=== PATIENT | female | born 1965 | race Caucasian/White ===

== ENCOUNTER 2024-08-17 14:27 | Outpatient (CLI) | payer OTHER ==
--- NOTE | 2024-08-17 19:13 | RADIOLOGY REPORT ---
Procedure: MR MRI LOWER EXTREMITY LEFT 08/17/2024 02:49 PM Indication: EFFUSION, LEFT ANKLE COMPARISON: None TECHNIQUE: Multisequence multiplanar imaging was performed. FINDINGS: Extensor tendons: Unremarkable. Flexor tendons: Severe tendinosis of the distal posterior tibialis tendon longitudinal split tear mil d fluid distention of the tendon sheath. Moderate surrounding edema noted. Diffuse edema in os navic ular. Peroneal tendons: Unremarkable. Syndesmotic ligaments: Unremarkable. Medial stabilizer ligaments: Unremarkable. Lateral stabilizer complex: Unremarkable. Sinus Tarsi: Unremarkable. Tarsal tunnel: Unremarkable. Achilles tendon: Unremarkable. Plantar fascia: Unremarkable. Bones/Joints: Suggestion of pes planus and hindfoot valgus. Mild talonavicular joint osteoarthritis l ateral marginal osteophytosis and subchondral cyst formation. No significant joint effusion Other: Unremarkable. IMPRESSION: 1. Severe tendinosis and high-grade partial tear of distal tibialis posterior tendon with associated tenosynovitis os navicular bone marrow edema most compatible with os navicular syndrome. Recommend cl inical correlation . 2. Pes planus and hindfoot valgus. 3. Mild talonavicular joint osteoarthritis.
== END 2024-08-17 23:59 | disposition home or self-care (01) ==
LOC: MRI02 14:27
PROVIDERS: ATTEND Podiatrist Foot & Ankle Surgery
DX: M19.072 Primary osteoarthritis, left ankle and foot (principal); M79.672 Pain in left foot; M25.472 Effusion, left ankle; M77.52 Other enthesopathy of left foot and ankle
CPT/HCPCS: 73721